=== PATIENT | female | born 1990 | race Caucasian/White ===

== ENCOUNTER 2019-01-18 09:15 | Inpatient (IN) ==
[2019-01-18] MEDS ORDERED: Famotidine 20 MG/2 ML VIAL IVP PRN (09:34)
[2019-01-18] MEDS ORDERED: Naloxone 0.4 MG/ML INJ IVP PRN (09:34)
[2019-01-18] MEDS ORDERED: Metoclopramide 10 MG/2 ML VIAL IVP PRN (09:34)
[2019-01-18] MEDS ORDERED: *HR* Nalbuphine 10 MG/ML AMPUL IVP PRN (09:34)
[2019-01-18] MEDS ORDERED: Ondansetron 4 MG/2 ML VIAL IVP PRN (09:36)
[2019-01-18] MEDS ORDERED: Lidocaine 1% 20 ML MDV INFILT PRN (09:36)
[2019-01-18] MEDS ORDERED: Oxytocin 20 units/ LR 1000 mL 20 UNIT/1,000 ML BAG IVC SCH ×2 (09:45→21:36)
[2019-01-18] MEDS ORDERED: Ringers Solution, Lactated 1,000 ML IVC SCH (09:45)
[2019-01-18 10:28] LABS: Basophils % 0.5 %; Eosinophils % 0.6 %; Hematocrit 34.5 % (35.3-44.9); Hemoglobin 10.8 g/dL (11.5-15.4); Immature Granulocytes % 1.8 % (0-4); Lymphocytes # 0.9 K/mcL (0.6-4.6); Lymphocytes % 14.1 %; Mean Corpuscular HGB Conc 31.3 g/dL (31.6-35.5); Mean Corpuscular Hemoglobin 26.9 pg (28.0-33.3); Mean Platelet Volume 9.8 fL (9.4-12.4); Monocytes # 0.5 K/mcL (0.0-1.3); Neutrophils # 4.7 K/mcL (1.6-8.9); Platelet Count 267 K/mcL (140-400); Red Blood Count 4.01 M/mcL (3.82-4.97); Red Cell Distribution Width 15.6 % (11.5-14.5); White Blood Count 6.2 K/mcL (4.3-11.1)
[2019-01-18 10:29] LABS: Amphetamine Screen,Urine Negative ng/mL (Cutoff=1000); Barbiturate Screen,Urine Negative ng/mL (Cutoff=200)
[2019-01-18 10:30] LABS: Benzodiazepines Screen,Urine Negative ng/mL (Cutoff=300); Cannabinoid Screen,Urine Negative ng/mL (Cutoff = 50); Cocaine Screen,Urine Negative ng/mL (Cutoff= 300); Opiate Screen,Urine Negative ng/mL (Cutoff=300); Phencyclidine Screen,Urine Negative ng/mL (Cutoff=25)
[2019-01-18 10:44] LABS: Alanine Aminotransferase 10 Units/L (7-52); Aspartate Amino Transferase 16 Units/L (13-39); BUN/Creatinine Ratio 12 (6-26); Blood Urea Nitrogen 7 mg/dL (6-20); Lactate Dehydrogenase 175 Units/L (140-271); Uric Acid 5.2 mg/dL (2.3-7.6); eGFR For African Americans > 60 (> 60); eGFR For Non-African Americans > 60 (> 60)
[2019-01-18 11:12] LABS: Protein/Creatinine Ratio,Urine 0.32 mg/mg (0.00-0.20)
--- NOTE | 2019-01-18 11:15 | OB/GYN History & Physical ---
Date of Encounter: 01/18/19 Time of Encounter: 11:13 Assessment and Plan (1) 39 weeks gestation of Current visit: Yes Status: Acute History of Present Illness Chief complaint: induction HPI: Ms. Strickland is a 28 year old female , who presents today for induction of labor at 39 weeks and 2 days. She is doing well. She is having no complaints of any kind. Presentation her cervix is 3 cm 50% effaced and a -2 station. 60 mL Jhaveri induction was started with Pitocin without difficulty. Baby is category 1 tracing doing well. This patient has no drug allergies. She is currently on vitamins. She has no chronic medical conditions. Surgical history includes a UPJ repair and hernia repair 2. Socially she denies tobacco, alcohol, illicit drug use. Family history significant for son with fullness heart wish to resolve on its own. Patient's mother was diagnosed recently with cardiac anomaly. Obstetric history significant for 2 term vaginal deliveries and 1 early miscarriage. 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 - Social History Smoking Status: Never smoker Smokeless Tobacco Status: No Alcohol use: none Drug use: none - Family History Mother Living Status: Still Living Hx Family Cardiac Disorders: Yes (spontaneous coronary artery dissection) Hx Family Respiratory Disorders: No Hx Family Cancer: No Hx Family GI Disorders: No Hx Family Genitourinary Disorders: No Hx Family Endocrine Disorder: No Hx Family Musculoskeletal Disorders: No Hx Family Neuromuscular Disorders: No Hx Family Neurologic Disorders: No Hx Family HEENT Disorders: No Hx Family Autoimmune Disorders: No Hx Family Reproductive Disorders: No Hx Family Psychosocial Disorders: No Hx Family Medical Disorders: No Father Living Status: Still Living Hx Family Cardiac Disorders: Yes (HTN) Hx Family Medical Disorders: Yes (one kidney is smaller than the other) Obstetrical History - Pregnancies : 4 Para: 2 Term: 2 Ab's: 1 Livin Medications and Allergies Docusate [Colace] 100 mg PO BID 01/18/19 [History] Ferrous Sulfate [Iron] 325 mg PO DAILY 01/18/19 [History] Pnv No.95/Ferrous Fum/Folic AC [ Caplet] 1 cap PO DAILY 01/18/19 [History] Allergy/AdvReac Type Severity Reaction Status Date / Time No Known Allergies Allergy Verified 01/18/19 10:03 Review of System OB All systems PM: reviewed and no additional remarkable complaints except as stated Exam - Constitutional Constitutional: well developed, well nourished, no acute distress, average body habitus - HEENT HEENT: EOMI, PERRL, Normocephaly - Neck Neck exam: full ROM - Lungs Respiratory exam: CTAB - Cardiovascular Cardiovascular exam: RRR - Abdomen Abdomen: Present: bowel sounds normal, gravid, non tender - Extremities Extremities exam: full ROM - Vagina Vagina: Present: normal moisture - Cervix Dilation: 3 Effacement: 50 Station: -2 - Uterus Uterus exam: Present: normal size Results Result Diagrams: 01/18/19 09:50 01/18/19 09:50 Abnormal lab results Hgb 10.8 g/dL (11.5-15.4) L 01/18/19 09:50 Hct 34.5 % (35.3-44.9) L 01/18/19 09:50 MCH 26.9 pg (28.0-33.3) L 01/18/19 09:50 MCHC 31.3 g/dL (31.6-35.5) L 01/18/19 09:50 RDW 15.6 % (11.5-14.5) H 01/18/19 09:50 Creatinine 0.59 mg/dL (0.60-1.20) L 01/18/19 09:50 Protein/Creatinin Ratio 0.32 mg/mg (0.00-0.20) H 01/18/19 09:50 Urine Total Protein 22 mg/dL (1-14) H 01/18/19 09:50 All other labs normal. - VTE Reasons for not Prescribing Prophylaxis: Treatment not Indicated - Low risk for VTE
--- NOTE | 2019-01-18 18:46 | OB/GYN Procedure Note ---
Delivery - Delivery Date: 01/18/19 Provider: Keith Burt Intrapartum events: none Delivery induction: oxytocin, chase Delivery augmentation: rupture of membranes Delivery monitor: external FHT, external uterine Anesthesia: none - (s) A Delivery Date: 01/18/19 Delivery Time: 18:33 Presentation: vertex Position: OA Route of delivery: Gender: Female Viability: Viable at 1 minute: 8 at 5 mins: 9 Shoulder Dystocia: not encountered Placenta: spontaneous Cord: 3 umbilical vessels - Repair Episiotomy: none Laceration Description: None - Complications Delivery complications: none Delivery comments: This patient progressed rapidly to complete and pushing and had a spontaneous vaginal delivery of a female over an intact perineum. Infant's head was in the perineum easily. The rest the infant was delivered with 1 push. Infant cried immediately upon delivery. The cord was clamped cut. The was in past nurse in attendance. Cord blood was obtained. The placenta was delivered spontaneously and intact. There are no cervical, vaginal, periurethral or perineal lacerations noted. Patient delivered a female . Weight is pending his mother skin the skin. Apgars are 8 at 1 minute and 9 at 5 minutes. Estimated blood loss 500 mL - Disposition Mom disposition: stable in LDR disposition: stable in LDR
[2019-01-18] MEDS ORDERED: Measles/Mumps/Rubella Vacc 0.5 ML VIAL SQ PRN (21:36)
[2019-01-18] MEDS ORDERED: Acetaminophen 325 MG TABLET PO PRN (21:36)
[2019-01-18] MEDS ORDERED: Ibuprofen 600 MG TABLET PO PRN (21:36)
[2019-01-19 07:24] LABS: Basophils % 0.2 %; Eosinophils % 0.3 %; Hematocrit 29.9 % (35.3-44.9); Hemoglobin 9.4 g/dL (11.5-15.4); Immature Granulocytes % 0.8 % (0-4); Lymphocytes % 11.1 %; Mean Corpuscular HGB Conc 31.4 g/dL (31.6-35.5); Mean Corpuscular Volume 85.9 fL (83.0-100.0); Monocytes # 0.9 K/mcL (0.0-1.3); Monocytes % 9.3 %; Neutrophils # 7.3 K/mcL (1.6-8.9); Platelet Count 214 K/mcL (140-400); Red Blood Count 3.48 M/mcL (3.82-4.97); Red Cell Distribution Width 15.6 % (11.5-14.5); Segmented Neutrophils % 78.3 %; White Blood Count 9.3 K/mcL (4.3-11.1)
--- NOTE | 2019-01-19 08:54 | Discharge Summary ---
Date of Encounter: 01/19/19 Time of Encounter: 08:51 - Discharge Diagnosis (1) Vaginal delivery Priority: Primary Status: Acute Comments: Continue routine care discharge home today (2) Breast feeding status of mother Priority: Secondary Status: Acute Comments: support prn - Discharge Medications Prescriptions: Continued Pnv No.95/Ferrous Fum/Folic AC [ Caplet] 1 cap PO DAILY Discontinued Docusate [Colace] 100 mg PO BID Ferrous Sulfate [Iron] 325 mg PO DAILY Home Medications: Pnv No.95/Ferrous Fum/Folic AC [ Caplet] 1 cap PO DAILY 01/18/19 [History] Allergies/Adverse Reactions: Allergy/AdvReac Type Severity Reaction Status Date / Time No Known Allergies Allergy Verified 01/18/19 10:03 Data Procedures and tests throughout hospitalization: Laboratory Tests 01/18/19 01/18/19 01/18/19 09:50 09:50 09:50 WBC 6.2 RBC 4.01 Hgb 10.8 L Hct 34.5 L MCV 86.0 MCH 26.9 L MCHC 31.3 L RDW 15.6 H Plt Count 267 MPV 9.8 Immature Gran % 1.8 Seg Neutrophils % 75.0 Lymphocytes % 14.1 Monocytes % 8.0 Eosinophils % 0.6 Basophils % 0.5 Neutrophils # 4.7 Lymphocytes # 0.9 Monocytes # 0.5 Eosinophils # 0.0 Basophils # 0.0 BUN Creatinine Est GFR ( Amer) Est GFR (Non-Af Amer) BUN/Creatinine Ratio Uric Acid AST ALT Lactate Dehydrogenase Urine Creatinine 68 Protein/Creatinin Ratio 0.32 H Urine Total Protein 22 H Urine Opiates Screen Negative Ur Buprenorphine Scrn Negative Ur Barbiturates Screen Negative Ur Phencyclidine Scrn Negative Ur Amphetamines Screen Negative U Benzodiazepines Scrn Negative Urine Cocaine Screen Negative U Marijuana (THC) Screen Negative Ur Drug Screen Interp See Below 01/18/19 01/19/19 09:50 06:45 WBC 9.3 RBC 3.48 L Hgb 9.4 L Hct 29.9 L MCV 85.9 MCH 27.0 L MCHC 31.4 L RDW 15.6 H Plt Count 214 MPV 10.0 Immature Gran % 0.8 Seg Neutrophils % 78.3 Lymphocytes % 11.1 Monocytes % 9.3 Eosinophils % 0.3 Basophils % 0.2 Neutrophils # 7.3 Lymphocytes # 1.0 Monocytes # 0.9 Eosinophils # 0.0 Basophils # 0.0 BUN 7 Creatinine 0.59 L Est GFR ( Amer) > 60 Est GFR (Non-Af Amer) > 60 BUN/Creatinine Ratio 12 Uric Acid 5.2 AST 16 ALT 10 Lactate Dehydrogenase 175 Urine Creatinine Protein/Creatinin Ratio Urine Total Protein Urine Opiates Screen Ur Buprenorphine Scrn Ur Barbiturates Screen Ur Phencyclidine Scrn Ur Amphetamines Screen U Benzodiazepines Scrn Urine Cocaine Screen U Marijuana (THC) Screen Ur Drug Screen Inter Labs on day of discharge: Labs from last 24 hours 01/19/19 01/18/19 01/18/19 06:45 09:50 09:50 WBC 9.3 RBC 3.48 L Hgb 9.4 L Hct 29.9 L MCV 85.9 MCH 27.0 L MCHC 31.4 L RDW 15.6 H Plt Count 214 MPV 10.0 Immature Gran % 0.8 Seg Neutrophils % 78.3 Lymphocytes % 11.1 Monocytes % 9.3 Eosinophils % 0.3 Basophils % 0.2 Neutrophils # 7.3 Lymphocytes # 1.0 Monocytes # 0.9 Eosinophils # 0.0 Basophils # 0.0 BUN 7 Creatinine 0.59 L Est GFR ( Amer) > 60 Est GFR (Non-Af Amer) > 60 BUN/Creatinine Ratio 12 Uric Acid 5.2 AST 16 ALT 10 Lactate Dehydrogenase 175 Urine Creatinine 68 Protein/Creatinin Ratio 0.32 H Urine Total Protein 22 H Urine Opiates Screen Ur Buprenorphine Scrn Ur Barbiturates Screen Ur Phencyclidine Scrn Ur Amphetamines Screen U Benzodiazepines Scrn Urine Cocaine Screen U Marijuana (THC) Screen Ur Drug Screen Inter 01/18/19 01/18/19 09:50 09:50 WBC 6.2 RBC 4.01 Hgb 10.8 L Hct 34.5 L MCV 86.0 MCH 26.9 L MCHC 31.3 L RDW 15.6 H Plt Count 267 MPV 9.8 Immature Gran % 1.8 Seg Neutrophils % 75.0 Lymphocytes % 14.1 Monocytes % 8.0 Eosinophils % 0.6 Basophils % 0.5 Neutrophils # 4.7 Lymphocytes # 0.9 Monocytes # 0.5 Eosinophils # 0.0 Basophils # 0.0 BUN Creatinine Est GFR ( Amer) Est GFR (Non-Af Amer) BUN/Creatinine Ratio Uric Acid AST ALT Lactate Dehydrogenase Urine Creatinine Protein/Creatinin Ratio Urine Total Protein Urine Opiates Screen Negative Ur Buprenorphine Scrn Negative Ur Barbiturates Screen Negative Ur Phencyclidine Scrn Negative Ur Amphetamines Screen Negative U Benzodiazepines Scrn Negative Urine Cocaine Screen Negative U Marijuana (THC) Screen Negative Ur Drug Screen Interp See Below Date of admission: 01/18/19 09:15 Consults: 01/18/19 21:36 Consult to Nuisance Wildlife Specialist [CONS] Routine Comment: Vaginal delivery, consult needed Discharging clinician: Sharon Quick Anticipated date of discharge: 01/19/19 - Patient Status Disposition: Home, Self-Care Condition: Good Functional capacity at discharge: independent ambulation - Discharge Instructions Follow Up With: Keith Burt MD [Partnered Physician] - - Diet and Activity Activity: increase activity as tolerated Diet: regular diet Hospital Course Delivery: Episiotomy: none Other procedures: none complications: none Discharge diagnosis: IUP at term delivered baby: female (breast feeding) Time Attestation: Total time spent providing and/or coordinating discharge services: Time Spent: Less than 30 minutes Exam - Constitutional Vitals: Temp Pulse Resp BP Pulse Ox 98.3 F 101 14 124/87 99 01/19/19 07:55 01/19/19 07:55 01/19/19 07:55 01/19/19 07:55 01/19/19 07:55 General appearance IM: A&O X 3, pleasant, answers questions appropriately - Respiratory Respiratory exam: Present: CTAB - Cardiovascular Cardiovascular exam IM: Present: RRR, +S1, +S2 - GI/Abdominal GI/Abdominal exam IM: normal bowel sounds - Uterine Tone: Firm Uterus Position: At Umbilicus, Midline - Extremities Exam Extremities exam IM: Present: full ROM, normal capillary refill, normal inspection - Neurological Exam Neurological exam: alert, oriented X3, reflexes normal
[2019-01-19] MEDS ORDERED: Prenatal Vit/FA 1 EACH TABLET PO SCH (09:00)
[2019-01-19 16:35] VITALS: BP 139/96
== END 2019-01-19 20:00 | disposition home or self-care (01) | DRG 807 ==
LOC: 1NENULAB 09:15 → MERGE 09:15 → 1NENUOBS 21:42
PROVIDERS: ADMIT Obstetrics & Gynecology; ATTEND Obstetrics & Gynecology